=== PATIENT | male | born 1950 | race Caucasian/White ===

== ENCOUNTER 2022-06-12 06:54 | Day surgery (SDC) | payer MEDICARE ==
[~2022-06-12] VITALS: Ht 177.8 cm; Wt 83.9 kg
[~2022-06-12 06:54] MED LIST: CLARITIN-D1 TA2 PO; CVS OMEPRAZOLE20 MG PO; FINASTERIDE5 MG PO; FLUTICASONE50 MCG; LOSARTAN POTASS25 MG PO; OMEPRAZOLE10 MG PO; OMEPRAZOLE20 M2 PO; PROSCAR5 MG PO; TAMSULOSIN0.4 MG PO
[2022-06-12 09:01] VITALS: BP 144/82
== END 2022-06-12 09:15 | disposition home or self-care (01) ==
LOC: ENDO 06:54 → ORM 08:00 → ENDO 09:15
PROVIDERS: ATTEND Surgery
PROC: 0DBH8ZX Excision of Cecum, Via Natural or Artificial Opening Endoscopic, Diagnostic (ICD-10-PCS; principal; 2022-06-12)
PROC: 0DBL8ZX Excision of Transverse Colon, Via Natural or Artificial Opening Endoscopic, Diagnostic (ICD-10-PCS; 2022-06-12)
DX: Z12.11 Encounter for screening for malignant neoplasm of colon (principal); D12.0 Benign neoplasm of cecum; D12.3 Benign neoplasm of transverse colon; K64.8 Other hemorrhoids; I10 Essential (primary) hypertension; E78.5 Hyperlipidemia, unspecified; Z86.010 Personal history of colon polyps